=== PATIENT | male | born 1955 | race Caucasian/White ===

== ENCOUNTER 2017-10-26 15:18 | Inpatient (IN) | payer OTHER ==
[~2017-10-26] VITALS: Ht 182.9 cm; Wt 54.2 kg
--- NOTE | ~2017-10-26 | HC ---
[facility] [place] [address] CONSULTATION Name: SHAYY LUCAS Room #: 438-P [facility] IN M.R.#: [id number] Admission: 10/26/17 Attend Phys: Shankar Pozo MD Discharge: Date of : 51 Report #: [id number] THIS REPORT FOR: //name// CC: Shankar Bowman PALLIATIVE CARE CONSULTATION ADDENDUM ASSESSMENT AND PLAN: 1. Recent gastrointestinal bleed. The patient is currently on proton pump inhibitor. 2. Schizoaffective disorder. He is continuing home medications, but I do feel this has an effect on his overall condition. However, the patient did demonstrate capacity for decision making at this time. Spent approx 30 min in advanced care discussion of voluntary and requested nature with patient and [employer]er shoe [employer]. I will continue to follow with this patient. Thank you very much for the consultation. <ELECTRONICALLY SIGNED> By: Andrew Olivarez DO 10/30/17 1226 15 2319 Andrew Olivarez DO /nt
--- NOTE | ~2017-10-26 | HC ---
[facility] [place] [address] CONSULTATION Name: MORELIA LUCASN Room #: 438-P [facility] IN M.R.#: [id number] Admission: 10/26/17 Attend Phys: Shankar Pozo MD Discharge: Date of : 51 Report #: [id number] THIS REPORT FOR: //name// CC: Shankar Bowman This is a palliative care consultation. REQUESTING PHYSICIAN: Shankar Pozo MD HISTORY OF PRESENT ILLNESS: The patient is a 61-year-old male presented on 10/26/2017. He has unfortunately had a sorted history with regards to his condition short gut syndrome and has had significant weight loss secondary to this. He has had recurrent small bowel obstructions that had caused this. Unfortunately, the patient has also had a right partially obstructing ureteral stone. He was potentially going to have surgical procedure, lithotripsy to alleviate this. He reports significant pain secondary to this, but he also reports significant pain secondary to chronic abdominal pain. Apparently, he reports being on 100 mg of tramadol every 4 hours and Percocet 5/325 one p.o. every 4 hours and then Dilaudid also for breakthrough pain and he stayed up to 4 mg of this. He was previously a resident of [facility] though he states that he never had medication available for him and he would prefer not to return to this facility. The patient states that at this time, he would like to have the stone removed as it has caused recurrent urinary tract infections and currently at this time, he has had been treated for one. The patient had been treated for 8 weeks previously for this as well. The patient had previously been on hospice for only a single day as he reportedly could not have hospice and have his antibiotics. The patient reports that he is desiring to be back on hospice as soon as the stone is removed. PAST MEDICAL HISTORY: Significant for short gut syndrome, history of recurrent small-bowel obstruction, nephrolithiasis, severe protein-calorie malnutrition, chronic anemia, Crohn's disease with multiple bowel resections, history of CVA, history of DVT, schizoaffective disorder. PAST SURGICAL HISTORY: Cholecystectomy, partial gastrectomy, hiatal hernia repair, IVC filter. FAMILY HISTORY: No significant family history per patient report. SOCIAL HISTORY: Never a smoker. No significant alcohol use, no illicit drug use per report. MEDICATIONS: The patient was previously on cefepime IV as reported as above, dicyclomine, ferrous sulfate, hydrocodone. He had been on tramadol in the past, Percocet as well as Dilaudid. The patient additionally has been on Xifaxan, [address] [address] CONSULTATION Name: MORELIA LUCASN Room #: 438-P [facility] IN ..#: [id number] Admission: 10/26/17 Attend Phys: Shankar Pozo MD Discharge: Date of : 51 Report #: [id number] trazodone, potassium chloride, Lomotil. ALLERGIES: Reportedly DILAUDID, though he states it is not an allergy and also BENADRYL. REVIEW OF SYSTEMS: GENERAL: The patient denies fevers, chills. Does report significant weight loss. HEENT: Denies any visual changes. CARDIOVASCULAR: Denies chest pain, palpitations or significant edema. RESPIRATORY: Denies shortness of breath, cough or wheezing. ABDOMEN: Does report nausea, occasional vomiting in the past. No apparent constipation at this time. GENITOURINARY: Does report recurrent dysuria. MUSCULOSKELETAL: Does report right flank pain. PHYSICAL EXAMINATION: VITAL SIGNS: Include temperature 36.6, pulse 58, respirations 18, blood pressure 114/69, 95% on room air. GENERAL: The patient is alert, oriented. He does not appear to be in acute distress or pain. HEENT: Extraocular muscles appear to be intact. No scleral icterus. No conjunctival injection. RESPIRATORY: Lungs are clear to auscultation bilaterally. No wheezes, rales or rhonchi. ABDOMEN: Soft, but he is tender to palpation diffusely. CARDIOVASCULAR: Regular rate and rhythm without murmur. EXTREMITIES: He moves all extremities, though he is diffusely cachectic. INTEGUMENTARY: He does have multiple abdominal scars. LABORATORY DATA: These include hemoglobin 10.8, white blood cells 5.5, platelets 259, creatinine 0.9. ASSESSMENT AND PLAN: 1. Severe protein calorie malnutrition. Unfortunately, the patient has had a history of short gut syndrome. He has had a recent significant weight loss. The patient is likely a candidate for hospice care services, but at this time, the patient prefers to pursue lithotripsy. This was discussed with nurse practitioner with urology. Urologist will speak with him tomorrow, likely to be scheduled a week out at the minimum. I discussed with the patient the possibility of going to long-term care with palliative care in addition, also reviewed notes with regards to pain management and I do agree that the patient would likely benefit from additional medication that would include such options as methadone. I do think that that might be a better option for management overall for the patient. We will attempt low dosing with previous pain management as well to ensure a smooth transition. I did discuss with the [facility] [address] [facility] [place] [address] CONSULTATION Name: SHAYY LUCAS Room #: 438-P [facility] IN .R.#: [id number] Admission: 10/26/17 Attend Phys: Shankar Pozo MD Discharge: Date of : 51 Report #: [id number] patient today. The patient is a continued do not resuscitate, does want to pursue hospice as stated again. If after lithotripsy, the patient is doing well, did discuss possibility switching directly over to hospice. I did discuss the risk of proceeding with this procedure. The patient still wanted to proceed with this however, at this time. 2. Nephrolithiasis as stated above. 3. Urinary tract infection. Again, the patient is receiving antibiotics and management per ____. <ELECTRONICALLY SIGNED> By: Andrew Olivarez DO 10/30/17 1226 14 2335 Andrew Olivarez DO /nt
[2017-10-26 15:18] VITALS: BP 99/65
[~2017-10-26 15:18] MED LIST: BACTRIM DS TAB1 EACH PO; BENTYL 10 MG CA10 M1 PO; CARAFATE 1 GM TA1 G1 PO; CEFEPIME 11 GM/50 ML IV; COLESTIPOL HCL1 G1 PO; DIAPER RASH OIN56 GM TOP; DILAUDID 4 MG TA4 M1 PO; DUONEB 2.5-0.5 M3 ML INH; HYDROCODON-ACE1 EAC5 PO; IRON325 PO; LACTASE 3000U T1 TA1 PO; LATUDA20 MG PO; LOMOTIL TABLET1 EACH PO; LORAZEPAM 22 MG/1 ML IV PUSH; MILK OF MA2400 MG/10 PO; MIRTAZAPINE15 M2 PO; MULTIVITAMINS1 EAC2 PO; PROBIOTIC1 EAC1 PO; PROTONIX 20 MG20 M1 PO; TRAZODONE HCL100 MG PO; TRIAMCINOLONE A80 G2 TOP; XIFAXAN550 M1 PO
[2017-10-26 15:42] LABS: HEMATOCRIT 33.1 % (42.0-52.0); MCH 29.7 pg (26.0-34.0); MCHC 33.4 g/dL (28.0-37.0); MCV 88.9 fL (80.0-100.0); RBC 3.72 mil/uL (4.50-6.00); RDW 15.3 % (10.5-14.5); WBC 5.3 thou/uL (4.0-11.0)
[2017-10-26 15:50] LABS: CALCIUM 8.8 mg/dL (8.5-10.1); POTASSIUM 5.1 mmol/L (3.5-5.1)
[2017-10-26 15:55] LABS: ALBUMIN 2.5 g/dL (3.4-5.0); TOTAL BILIRUBIN 0.1 mg/dL (<0.1-1.0); TOTAL PROTEIN 6.2 g/dL (6.4-8.2)
[2017-10-26] MEDS ORDERED: HYDROCODONE-ACE15 ML PO (16:20)
[2017-10-26] MEDS ORDERED: ONDANSETRON ODT4 MG PO (16:21)
[2017-10-26] MEDS ORDERED: KLOR-CON 1010 MEQ PO (16:21)
[2017-10-26] MEDS ORDERED: PRO-STAT LIQUID30 M1 PO (16:22)
[2017-10-26] MEDS ORDERED: GAS RELIEF80 MG PO (16:22)
[2017-10-26 18:08] LABS: URINE BILIRUBIN NEGATIVE (Negative); URINE BLOOD TRACE (Negative); URINE CLARITY SL HAZY; URINE COLOR YELLOW; URINE GLUCOSE-RANDOM* NEGATIVE (Negative); URINE KETONES NEGATIVE (Negative); URINE LEUKOCYTES-REFLEX TRACE (Negative); URINE NITRITE-REFLEX POSITIVE (Negative); URINE PROTEIN (DIPSTICK) NEGATIVE (Negative); URINE UROBILINOGEN 0.2 E.U./dl (0.2-1.0)
[2017-10-26 18:15] LABS: SQUAMOUS None Seen /LPF (0-3)
[2017-10-26 18:16] LABS: BACTERIA-REFLEX >30 Many /HPF (None Seen); CASTS None Seen /LPF (None Seen); CRYSTALS None Seen /LPF (None Seen); URINE RBC 3-10 Few /HPF (0-2)
[2017-10-26 18:40] VITALS: BP 121/81
[2017-10-26 19:20] VITALS: BP 1113/68
[2017-10-27 00:21] VITALS: BP 130/104
[2017-10-27 04:50] VITALS: BP 103/67
[2017-10-27 08:00] VITALS: BP 103/70
[2017-10-27 16:00] VITALS: BP 116/68
[2017-10-27 19:46] VITALS: BP 110/77
[2017-10-28 04:00] VITALS: BP 118/74
[2017-10-28 05:50] LABS: CALCIUM 8.9 mg/dL (8.5-10.1); POTASSIUM 4.2 mmol/L (3.5-5.1)
[2017-10-28 08:49] VITALS: BP 92/60
[2017-10-28 16:00] VITALS: BP 117/75
[2017-10-28 19:49] VITALS: BP 91/55
[2017-10-29 03:35] VITALS: BP 87/63; BP 97/63
[2017-10-29 05:57] LABS: HEMATOCRIT 32.6 % (42.0-52.0); HEMOGLOBIN 10.8 gm/dL (14.0-18.0); MCH 29.5 pg (26.0-34.0); MCHC 33.2 g/dL (28.0-37.0); MCV 88.8 fL (80.0-100.0); RBC 3.67 mil/uL (4.50-6.00); RDW 15.4 % (10.5-14.5); WBC 5.5 thou/uL (4.0-11.0)
[2017-10-29 06:10] LABS: CALCIUM 8.7 mg/dL (8.5-10.1); CREATININE 0.9 mg/dL (0.7-1.3)
[2017-10-29 08:00] VITALS: BP 91/47
[2017-10-29 15:25] VITALS: BP 114/69
[2017-10-29 23:00] VITALS: BP 110/75
[2017-10-30 04:41] VITALS: BP 119/80
[2017-10-30] MEDS ORDERED: METHADONE HCL 110 MG PO (10:17)
== END 2017-10-30 15:25 | disposition hospice, home (50) | DRG 693 ==
LOC: ER 15:18 → 4S 17:50 → EROBS 17:50 → 4S 19:20
PROVIDERS: Emergency Medicine; Hospitalist; Internal Medicine Endocrinology, Diabetes & Metabolism
DX: N20.0 Calculus of kidney (principal); E43 Unspecified severe protein-calorie malnutrition; N39.0 Urinary tract infection, site not specified; K91.2 Postsurgical malabsorption, not elsewhere classified; K50.90 Crohn's disease, unspecified, without complications; Z68.1 Body mass index [BMI] 19.9 or less, adult; F25.9 Schizoaffective disorder, unspecified; G89.29 Other chronic pain; R10.9 Unspecified abdominal pain; Z90.49 Acquired absence of other specified parts of digestive tract; Z90.3 Acquired absence of stomach [part of]; Z86.73 Personal history of transient ischemic attack (TIA), and cerebral infarction without residual deficits; Z95.828 Presence of other vascular implants and grafts; Z86.718 Personal history of other venous thrombosis and embolism; Z88.8 Allergy status to other drugs, medicaments and biological substances; Z79.899 Other long term (current) drug therapy
CPT/HCPCS: 10195